=== PATIENT | female | born 1970 | race Two or more races ===

== ENCOUNTER 2019-10-06 14:12 | Emergency (ER) | payer BC ==
[~2019-10-06] VITALS: Ht 162.6 cm; Wt 73.6 kg
--- NOTE | 2019-10-06 14:54 | NUR ---
PT TO ROOM 30 PER PEDIS. PT C/O COUGH AND GENERAL ACHES AND PAINS FOR 2 DAYS. PT C/O THAT SHE FEELS LIKE THE RIGHT SIDE OF HER FACE IS DROOPY. DENIES HUTCHISON. RIGHT EYE RED, BUT FACIAL FEATURES ARE SYMETRICAL. FAMILY AT BEDSIDE. PT IN GOWN WITH WARM BLANKETS AND CALL LIGHT. AWAITING MD TO ASSESS.
--- NOTE | 2019-10-06 15:52 | NUR ---
DISCHARGE INSTRUTIONS GIVEN TO PATIENT WITH PRESCRIPTION FOR INHALER, AND A LIST OF OTC MEDICATONS. PT VERBALIZES UNDERSTANDING OF ALL MEDICATIONS AND NEED TO FOLLOW UP IF NOT FEELING ANY BETTER. PT AMBULATED OUT OF ED PER PEDIS WITH .
[2019-10-06 15:54] VITALS: BP 132/76
[2019-10-06] MEDS ORDERED: KETOROLAC 30 MG/1 ML IM ONE (16:00)
== END 2019-10-06 15:58 | disposition home or self-care (01) ==
LOC: ED 15:51
DX: J98.01 Acute bronchospasm (principal); J00 Acute nasopharyngitis [common cold]; B97.89 Other viral agents as the cause of diseases classified elsewhere; J01.00 Acute maxillary sinusitis, unspecified
CPT/HCPCS: 99283